=== PATIENT | male | born 1985 | race African-American/Black ===

== ENCOUNTER 2021-09-20 02:11 | Emergency (ER) | payer OTHER ==
[2021-09-20 03:06] LABS: CORONAVIRUS 2019 SARS-COV-2 NEGATIVE (NEGATIVE); INFLUENZA A NAA NEGATIVE (NEGATIVE)
[2021-09-20] MEDS ORDERED: ZPAK PO (03:38)
[2021-09-20] MEDS ORDERED: ONDANSETRON ODT4 MG SL (03:38)
[2021-09-20] MEDS ORDERED: HYDROCODONE-CH473 ML PO (03:38)
[2021-09-20] MEDS ORDERED: VENTOLIN HFA IN18 GM INH (03:38)
[2021-09-20] MEDS ORDERED: IBUPROFEN800 MG PO (03:38)
[2021-09-20] MEDS ORDERED: MEDROL 4MG DOSEP4 MG PO (03:38)
== END 2021-09-20 04:00 | disposition home or self-care (01) ==
LOC: FER 02:11
PROVIDERS: Emergency Medicine Emergency Medical Services
DX: J18.9 Pneumonia, unspecified organism (principal); J06.9 Acute upper respiratory infection, unspecified; Z20.822 Contact with and (suspected) exposure to COVID-19; Z86.16 Personal history of COVID-19
CPT/HCPCS: 71045; 94640; 94664; J1885; U0002